=== PATIENT | female | born 1960 | race Caucasian/White ===

== ENCOUNTER → 2018-03-28 | Day surgery (SDC) | payer BC ==
[~2018-03-28] MED LIST: ASPIR-LOW81 MG PO; ATORVASTATIN CA20 MG PO; FENTANYL CITRATE/PF 100MCG/2 ML INJ ONE; HYOSCYAMINE SULFATE 0.5 MG/ML INJ ONE; LEVOTHYROXINE50 MCG PO; LISINOPRIL-HCT1 EAC1 PO; MIDAZOLAM HCL 2 MG/2 ML VIAL ONE; PROPOFOL IV EMULSION 10 MG/ML 50 ML VIAL ONE
[2018-03-28 11:00] VITALS: BP 104/69
--- NOTE | 2018-03-28 12:25 | Operative Report ---
DATE OF PROCEDURE: March 28, 2018 REFERRING PHYSICIAN: Dr. Juanjose De La Rosa. PROCEDURE PERFORMED: Colonoscopy and polypectomy. INDICATIONS FOR COLONOSCOPY: Patient is status post resection of a cecal mass. She is in for colorectal cancer surveillance. MEDICATION: Patient was done under MAC. Please see anesthesiologist's note. PROCEDURE: With the patient in the left lateral decubitus position, the flexible fiberoptic Olympus colonoscope was inserted into the rectum with ease and advanced all the way to the cecum. An anastomosis site was noted, and it looked intact and no evidence of recurrence. The rest of the ascending colon appeared to be within normal limits. There was an approximately 6 mm submucosal polypoid lesion noted in the proximal transverse colon and suspicious for a lipoma, and that was biopsied. The rest of the transverse colon appeared to be within normal limits. One polyp was hot biopsied from the descending and 1 polyp was hot biopsied from the sigmoid. The scope was then retroflexed into the distal rectum and small internal hemorrhoids were noted, none of which was actively bleeding. The scope was then straightened out. It was subsequently withdrawn. Patient tolerated the procedure well. IMPRESSION: 1. Anastomotic site intact. No evidence of recurrence. 2. Transverse colon submucosal polypoid lesion biopsied. 3. Descending colon polyp hot biopsied. 4. Sigmoid colon polyp hot biopsied. 5. Internal hemorrhoids, none actively bleeding. PLAN: Follow up histology. Initiate high-fiber low-fat diet. Initiate high-fiber supplement. Patient might benefit from a followup colonoscopy in 3 years. Job#: [id number] EV cc:JUANJOSE DE LA ROSA DO
== END ==
LOC: OR 07:56
PROVIDERS: ATTEND Internal Medicine Gastroenterology
DX: Z12.11 Encounter for screening for malignant neoplasm of colon (principal); Z86.010 Personal history of colon polyps; K64.8 Other hemorrhoids; K63.5 Polyp of colon; Z79.82 Long term (current) use of aspirin; Z88.0 Allergy status to penicillin
CPT/HCPCS: 45384; 93005; J1980; J2250; 45378; 45380